=== PATIENT | female | born 1995 | race Caucasian/White ===

== ENCOUNTER → 2017-01-29 | Outpatient (CLI) | payer OTHER ==
[~2017-01-29] MED LIST: PRENTAB26 PO
[2017-02-01 00:58] LABS: CHLAMYDIA TRACH RNA*** NOT DETECTED (NOT DETECTED); GC (NEIS GONORRHOEAE)RNA** NOT DETECTED (NOT DETECTED)
== END | disposition home or self-care (01) ==
LOC: C.LABSPEC 17:36
PROVIDERS: ATTEND Obstetrics & Gynecology
DX: O09.622 Supervision of young multigravida, second trimester (principal); Z3A.00 Weeks of gestation of pregnancy not specified

== ENCOUNTER → 2017-02-12 | Outpatient (CLI) | payer OTHER ==
[2017-02-12 18:56] LABS: GTGD 50 Grams
[2017-02-14 14:10] LABS: AFP CONCENTRATION 42.1 NG/ML; AFP MULTIPLE OF MEDIAN 0.91; AFPTS GESTATIONAL AGE 17.3 WEEKS; AFPTS INSULIN DEP DIABETIC? NO; AFPTS MATERNAL WT 116 LBS; ALPHA-FETOPROTEIN RACE CAUCASIAN=W; EDD DETERMINED BY ULTRASOUND; HISTORY OF NTD NO; REPEAT SAMPLE? NO
== END | disposition home or self-care (01) ==
LOC: C.LAB1850 16:37
PROVIDERS: ATTEND Obstetrics & Gynecology
DX: O09.622 Supervision of young multigravida, second trimester (principal); Z3A.00 Weeks of gestation of pregnancy not specified

== ENCOUNTER 2017-03-24 21:26 | Outpatient (CLI) | payer OTHER ==
[~2017-03-24] VITALS: Ht 154.9 cm; Wt 54.5 kg
[2017-03-24 22:16] VITALS: Ht 154.9 cm; Wt 54.5 kg
[2017-03-24] MEDS ORDERED: PRENTAB26 PO (22:16)
[2017-03-24 22:25] LABS: URINE APPEARANCE TURBID (CLEAR); URINE BILIRUBIN NEG (NEG); URINE COLOR YELLOW; URINE NITRITE NEG (NEG); URINE SPECIFIC GRAVITY 1.019 (1.000-1.030); UROBILINOGEN NEG (NEG); ZZUR CULT IF INDIC CLEAN CATCH NO
[2017-03-24 22:26] LABS: MANUAL MICROSCOPIC REQUIRED? NO; REVIEW REQ? NO
== END 2017-03-24 23:40 ==
LOC: C.OPB 21:26 → C.LD 21:27 → C.OPB 23:40
PROVIDERS: ATTEND Obstetrics & Gynecology
DX: O26.892 Other specified pregnancy related conditions, second trimester (principal); R10.2 Pelvic and perineal pain; Z3A.23 23 weeks gestation of pregnancy

== ENCOUNTER 2017-05-09 20:20 | Outpatient (CLI) | payer OTHER ==
[~2017-05-09] VITALS: Ht 154.9 cm; Wt 56.4 kg
[2017-05-09 20:49] VITALS: Ht 154.9 cm; Wt 56.4 kg
== END 2017-05-09 22:35 | disposition home or self-care (01) ==
LOC: C.OPB 20:20 → C.LD 20:20 → C.OPB 22:35
PROVIDERS: ATTEND Obstetrics & Gynecology
DX: O99.89 Other specified diseases and conditions complicating pregnancy, childbirth and the puerperium (principal); R10.9 Unspecified abdominal pain; O62.9 Abnormality of forces of labor, unspecified; Z3A.29 29 weeks gestation of pregnancy

== ENCOUNTER → 2017-05-16 | Outpatient (CLI) | payer OTHER ==
[2017-05-16 16:39] LABS: GTGD 50 Grams; HEMATOCRIT 28.8 % (37-47)
[2017-05-16 16:48] LABS: URINE APPEARANCE CLEAR (CLEAR); URINE BILIRUBIN NEG (NEG); URINE COLOR YELLOW; URINE NITRITE NEG (NEG); URINE PH 6.5 (4.5-7.5); URINE SPECIFIC GRAVITY 1.018 (1.000-1.030); UROBILINOGEN NEG (NEG)
[2017-05-16 16:56] LABS: REVIEW REQ? NO
[2017-05-16 16:57] LABS: MANUAL MICROSCOPIC REQUIRED? NO
== END | disposition home or self-care (01) ==
LOC: C.LAB1850 15:38
PROVIDERS: ATTEND Obstetrics & Gynecology
DX: O09.623 Supervision of young multigravida, third trimester (principal)

== ENCOUNTER → 2017-05-29 | Outpatient (CLI) | payer OTHER ==
[2017-05-29 15:43] LABS: AMNIS INTERNAL NEGATIVE QC NEG CLEAR BACKGROUND; AMNIS INTERNAL POSITIVE QC POS CONTROL LINE; AMNISURE NEG
== END | disposition home or self-care (01) ==
LOC: C.LABSPEC 09:55
PROVIDERS: ATTEND Obstetrics & Gynecology
DX: N89.8 Other specified noninflammatory disorders of vagina (principal)

== ENCOUNTER 2017-06-09 13:45 | Outpatient (CLI) | payer OTHER ==
[~2017-06-09] VITALS: Ht 154.9 cm; Wt 63.0 kg
[2017-06-09] MEDS ORDERED: OXYCODONE/ACETAMINOPHEN 5-325 TAB PO STA (14:19)
[2017-06-09] MEDS ORDERED: OXYCODONE/ACETAMINOPHEN 5-325 TAB ONE (14:25)
[2017-06-09 14:58] LABS: HEMATOCRIT 26.7 % (37-47); MEAN CELL VOLUME 81.7 fL (80-100); MEAN CORPUSCULAR HEMOGLOBIN 25.1 pg (25-34); MEAN CORPUSCULAR HGB CONC 30.7 g/dl (32-36); MEAN PLATELET VOLUME 9.7 fL (7.4-10.4); PLATELET COUNT 241 K/uL (130-400); RED BLOOD COUNT 3.27 M/uL (4.2-5.4); WHITE BLOOD COUNT 10.39 K/uL (4.8-10.8)
[2017-06-09 15:09] LABS: URINE APPEARANCE CLEAR (CLEAR); URINE BILIRUBIN NEG (NEG); URINE COLOR YELLOW; URINE EPITHELIAL CELL AUTO 0-5 /lpf (0-5); URINE NITRITE NEG (NEG); URINE SPECIFIC GRAVITY 1.013 (1.000-1.030); UROBILINOGEN NEG (NEG); ZZUR CULT IF INDIC CLEAN CATCH NO
[2017-06-09 15:10] LABS: MANUAL MICROSCOPIC REQUIRED? NO; REVIEW REQ? NO
[2017-06-09 15:17] LABS: BASO % 0.3 %; BASO ABS # 0.03 K/uL (0-0.2); COMPLETE YES; EOS % 1.3 %; IG% 1.3 %; LYMPH % 12.6 %; LYMPH ABS # 1.31 K/uL (1.2-3.4); MONO % 8.9 %; NEUT % 75.6 %; POLYCHROMASIA 1+
[2017-06-09] MEDS ORDERED: LACTATED RINGER'S 1000ML 1,000 ML IV SCH ×2 (15:45→16:00)
[2017-06-09] MEDS ORDERED: MAGNESIUM SULFATE / WTR 1,000 ML IV SCH (15:45)
[2017-06-09] MEDS ORDERED: MAGNESIUM SULFATE 4GM / WTR 4 GM BAG IV ONE (16:00)
[2017-06-09] MEDS ORDERED: BETAMETH SOD PHOS/ACETATE IA 6 MG/ML IM ONE (16:15)
[2017-06-09] MEDS ORDERED: NIFEdipine 10 MG CAP PO ONE (16:30)
[2017-06-09] MEDS ORDERED: PENICILLIN G POTASSIUM IV 6 MU in DEXTROSE 5% 250ML 250 ML IV ONE (16:30)
[2017-06-09] MEDS ORDERED: ONDANSETRON INJ 2 MG/ML 2 ML VIAL ONE (17:41)
[2017-06-09] MEDS ORDERED: ONDANSETRON INJ 2 MG/ML 2 ML VIAL IV ONE (18:00)
[2017-06-09 18:12] VITALS: Ht 154.9 cm; Wt 63.0 kg
== END 2017-06-09 17:45 | disposition short-term general hospital (02) ==
LOC: C.LD 13:45 → C.OPB 13:45
PROVIDERS: ATTEND Obstetrics & Gynecology
DX: O26.893 Other specified pregnancy related conditions, third trimester (principal); R10.9 Unspecified abdominal pain; M54.9 Dorsalgia, unspecified; Z3A.34 34 weeks gestation of pregnancy

== ENCOUNTER → 2017-07-04 | Outpatient (CLI) | payer OTHER ==
[2017-07-10 02:56] LABS: CHLAMYDIA TRACH RNA*** NOT DETECTED (NOT DETECTED); GC (NEIS GONORRHOEAE)RNA** NOT DETECTED (NOT DETECTED)
== END | disposition home or self-care (01) ==
LOC: C.LABSPEC 15:28
PROVIDERS: ATTEND Obstetrics & Gynecology
DX: Z39.2 Encounter for routine postpartum follow-up (principal)